=== PATIENT | female | born 1975 | race Caucasian/White ===

== ENCOUNTER → 2017-08-19 | Outpatient (CLI) | payer OTHER ==
[~2017-08-19] MED LIST: ALLEGRA30 MG; DULERA 100 MCG/13 GM; XOPENEX0.63 MG/3; ZANTAC300 MG
== END | disposition home or self-care (01) ==
LOC: PPHC 14:59
DX: J06.9 Acute upper respiratory infection, unspecified (principal)

== ENCOUNTER 2019-05-12 09:29 | Outpatient (CLI) | payer OTHER | END 2019-05-12 09:36 | disposition home or self-care (01) | LOC: LAB 09:29 | DX: J11.1 Influenza due to unidentified influenza virus with other respiratory manifestations (principal) ==

== ENCOUNTER 2022-06-26 08:22 | Outpatient (CLI) | payer OTHER | END 2022-06-26 08:26 | disposition home or self-care (01) | LOC: SONOGRAMA 08:22 | PROVIDERS: ATTEND Pathology Anatomic Pathology & Clinical Pathology | DX: D34 Benign neoplasm of thyroid gland (principal); E04.1 Nontoxic single thyroid nodule ==